=== PATIENT | male | born 1995 | race Two or more races ===

== ENCOUNTER 2019-08-21 15:37 | Emergency (ER) | payer SELFPAY ==
[~2019-08-21] VITALS: Ht 165.1 cm; Wt 72.6 kg
--- NOTE | 2019-08-21 15:47 | NUR ---
ED Nurse Note: pt walked in to ED for C/O SOB since 4 days ago. denies asthma, cough ot any other respiratory problems. Sp02 at triage is 98%
[2019-08-21 15:48] VITALS: BP 153/106
--- NOTE | 2019-08-21 17:23 | Diagnostic Imaging Report ---
Indication: Dyspnea Comparison: None A single view chest radiograph was obtained. Findings: Cardiomediastinal appearance is within normal limits for age. The lungs are clear. Pulmonary vascularity is appropriate. The diaphragmatic contour is smooth and costophrenic angles are sharp. No pleural effusions are identified. The bones are unremarkable. Impression: No acute findings
[2019-08-21 17:29] LABS: EOSINOPHILS % (AUTO) 0.2 % (0.0-3.0); HEMATOCRIT 50.9 % (42.0-52.0); HEMOGLOBIN 16.2 G/DL (14.2-18.0); MEAN CORPUSCULAR VOLUME 87 FL (80-99); MONOCYTES % (AUTO) 9.9 % (1.0-10.0); PLATELET COUNT 173 K/UL (150-450); RED BLOOD COUNT 5.87 M/UL (4.70-6.10); RED CELL DISTRIBUTION WIDTH 12.8 % (11.6-14.8); WHITE BLOOD COUNT 3.6 K/UL (4.8-10.8)
[2019-08-21 17:32] LABS: APPEARANCE,URINE CLEAR; BILIRUBIN, URINE NEGATIVE (NEGATIVE); GLUCOSE, URINE (UA) NEGATIVE (NEGATIVE); KETONES,URINE NEGATIVE (NEGATIVE); LEUKOCYTE ESTERASE ,URINE NEGATIVE (NEGATIVE); NITRITE,URINE NEGATIVE (NEGATIVE); PH,URINE 5 (4.5-8.0); PROTEIN,URINE NEGATIVE (NEGATIVE); UROBILINOGEN,URINE NORMAL MG/DL (0.0-1.0)
[2019-08-21 17:35] LABS: COLOR,URINE YELLOW
[2019-08-21 17:36] LABS: ANION GAP 11 mmol/L (5-15); BLOOD UREA NITROGEN 12 mg/dL (7-18); CALCIUM 9.7 MG/DL (8.5-10.1); CARBON DIOXIDE 29 MMOL/L (21-32); CHLORIDE 107 MMOL/L (98-107); CREATININE 0.8 MG/DL (0.55-1.30); POTASSIUM 3.7 MMOL/L (3.5-5.1); SODIUM 147 MMOL/L (136-145)
[2019-08-21 17:41] LABS: ALANINE AMINOTRANSFERASE 53 U/L (12-78); ALBUMIN 4.6 G/DL (3.4-5.0); ALBUMIN/GLOBULIN RATIO 1.3 (1.0-2.7); ALKALINE PHOSPHATASE 122 U/L (46-116); ASPARTATE AMINO TRANSFERASE 30 U/L (15-37); BILIRUBIN,TOTAL 0.3 MG/DL (0.2-1.0)
--- NOTE | 2019-08-21 17:51 | Emergency Room Report ---
History of Present Illness General Chief Complaint: Dyspnea/Respdistress Source: Patient Present Illness HPI 24-year-old male with no significant past medical history denying any travel history, non-smoker, no bleeding history here complaining of 2 days of shortness of breath with minor cough and posttussive chest pain. Denies any fever and chills. Denies coming contact with anyone who is positive for cocaine 19. Patient is a construction equipment operator. Denies abdominal pain, nausea vomiting. Denies any history of hypertension however blood pressure appears to be elevated upon arrival. Denies chest pain radiation, headache and dizziness. Has not taken medication for symptom relief. Otherwise healthy and afebrile with normal vital signs. COVID-19 risk:Contact w/high r: No COVID-19 risk:Travel to affect: No Has patient experienced mars: No Allergies: Coded Allergies: No Known Allergies (Unverified , 08/21/19) Patient History Past Medical History: see triage record Past Surgical History: none Pertinent Family History: none Immunizations: UTD Reviewed Nursing Documentation: PMH: Agreed; PSxH: Agreed Nursing Documentation-PMH Past Medical History: No Stated History Review of Systems All Other Systems: negative except mentioned in HPI Physical Exam Vital Signs Date Time Temp Pulse Resp B/P (MAP) Pulse Ox O2 Delivery O2 Flow Rate FiO2 08/21/19 15:41 98.4 66 20 153/106 (122) 98 Room Air Sp02 EP Interpretation: reviewed, abnormal - Elevated blood pressure General Appearance: no apparent distress, alert, GCS 15, non-toxic Head: normocephalic, atraumatic Eyes: bilateral eye normal inspection, bilateral eye PERRL ENT: hearing grossly normal, normal pharynx, no angioedema, normal voice Neck: full range of motion, supple/symm/no masses Respiratory: chest non-tender, lungs clear, normal breath sounds, no rhonchi, no wheezing, speaking full sentences Cardiovascular #1: regular rate, rhythm, no edema, no murmur Gastrointestinal: normal bowel sounds, non tender, soft, non-distended, no guarding, no rebound Rectal: deferred Genitourinary: no CVA tenderness Musculoskeletal: back normal, no calf tenderness Neurologic: alert, motor strength/tone normal, oriented x3, sensory intact, responsive, speech normal Psychiatric: judgement/insight normal, memory normal, mood/affect normal, no suicidal/homicidal ideation Skin: no rash Lymphatic: no adenopathy Medical Decision Making PA Attestation All my diagnosis and treatment plans were reviewed ad discussed with my supervising physician Dr. Saab Diagnostic Impression: Primary Impression: Dyspnea Additional Impression: URI (upper respiratory infection) ER Course 24-year-old male with no significant past medical history denying any travel history, non-smoker, no bleeding history here complaining of 2 days of shortness of breath with minor cough and posttussive chest pain. Denies any fever and chills. Denies coming contact with anyone who is positive for cocaine 19. Patient is a construction equipment operator. Denies abdominal pain, nausea vomiting. Denies any history of hypertension however blood pressure appears to be elevated upon arrival. Denies chest pain radiation, headache and dizziness. Has not taken medication for symptom relief. Otherwise healthy and afebrile with normal vital signs. Ddx considered but are not limited to: Coronavirus, bronchitis, PNA, URI viral, bacterial bronchitis Vital signs: are WNL, pt. is afebrile H&PE are most consistent with: Dyspnea, URI ORDERS: Chest x-ray, EKG, CBC, CMP, UA, tox screen, Tylenol, albuterol, guaifenesin ED INTERVENTIONS: None required at this time. DISCHARGE: At this time pt. is stable for d/c to home. Will provide printed patient care instructions, and any necessary prescriptions. Care plan and follow up instructions have been discussed with the patient prior to discharge. Take medication as directed, follow-up with your primary doctor, you need to stay home for self quarantine due to Covid 19 precautions for 14 days EKG Diagnostic Results Rate: normal Rhythm: NSR ST Segments: no acute changes Other Impression No acute ST changes Chest X-Ray Diagnostic Results Chest X-Ray Diagnostic Results : Chest X-Ray Ordered: Yes # of Views/Limited/Complete: 1 View Indication: Other - Cough PA Xray: Interpretation reviewed, by supervising MD, and agrees with findings. Interpretation: no consolidation, no effusion, no pneumothorax Impression: No acute disease Electronically Signed by: Quyen Urias PA-C Last Vital Signs Date Time Temp Pulse Resp B/P (MAP) Pulse Ox O2 Delivery O2 Flow Rate FiO2 08/21/19 15:48 98.4 66 20 153/106 98 Room Air Disposition: HOME, SELF-CARE Condition: Stable Scripts Guaifenesin* (GUAIFENESIN*) 100 Mg/5 Ml Liquid 15 ML ORAL Q8H, #120 ML 0 Refills Prov: Quyen Jara 08/21/19 Acetaminophen* (TYLENOL EXTRA STRENGTH*) 500 Mg Tablet 500 MG ORAL Q8H PRN for Prn Headache/Temp > 101, #30 TAB 0 Refills Prov: Quyen Jara 08/21/19 Albuterol Sulfate (VENTOLIN HFA) 18 Gm Hfa.aer.ad 2 PUFFS INH EVERY 6 HOURS, #18 GM 0 Refills Prov: Quyen Jara 08/21/19 Patient Instructions: Shortness of Breath, [id number], Upper Respiratory Infection, Adult, [id number] Additional Instructions: Take medication as directed, follow-up with your primary doctor, you need to stay home for self quarantine due to Covid 19 precautions for 14 days Quyen Jara Aug 21, 2019 17:51
[2019-08-21] MEDS ORDERED: VENTOLIN HFA18 GM INH (17:52)
[2019-08-21] MEDS ORDERED: GUAIFENESI100 MG/5 M ORAL (17:52)
[2019-08-21] MEDS ORDERED: TYLENOL EXTRA500 MG ORAL (17:52)
[2019-08-21 18:29] VITALS: BP 145/99
--- NOTE | 2019-08-21 18:29 | NUR ---
ER DISCHARGE NOTE: Patient is cleared to be discharged per ERMD, pt is aox4, on room air, with stable vital signs. pt was given dc and prescription instructions, pt was able to verbalize understanding, pt id band removed. pt is able to ambulate with steady gait. pt took all belongings.
== END 2019-08-21 18:29 | disposition home or self-care (01) ==
LOC: EMR 16:15
DX: J06.9 Acute upper respiratory infection, unspecified (principal); R06.00 Dyspnea, unspecified
CPT/HCPCS: 36415; 71045; 80053; 80307; 81003; 84484; 85025; 93005; 99283